=== PATIENT | female | born 1980 | race Caucasian/White ===

== ENCOUNTER → 2017-02-15 | Outpatient (CLI) | payer OTHER ==
--- NOTE | 2017-02-15 14:48 | KCIC ---
PROCEDURE MR of the left forefoot and MR of the right forefoot HISTORY Mass plantar to the 1st metatarsophalangeal joint at the left foot. Mass spreading apart the 3rd and 4th toes at the right foot. TECHNIQUE Routine multiplanar sequences are obtained separately through each foot. COMPARISON None FINDINGS Right foot Soft tissue mass identified between the 3rd and 4th metatarsal heads and proximal phalanges. Measures 3.5 cm anterior to posterior by 1.7 cm wide by 2.0 cm cephalocaudal. Margins are well defined. This consist of hyperintense T1 signal and heterogeneously hyperintense T2 signal with more central component of low T2 signal. This does separate the 3rd and 4th toes. No evidence of underlying bone destruction or bone marrow edema. No acute fracture. No significant joint effusion. Visualized tendons are intact without significant tendon sheath fluid. Lisfranc ligament complex is intact as is tarsometatarsal alignment. Left foot Soft tissue mass plantar and medial to the 1st metatarsophalangeal joint. The mass measures 2.6 cm wide by 1.8 cm height by 3.1 cm anterior to posterior. This consists of mildly hyperintense T1 signal. T2 signal is mostly hypointense with some milder internal areas of T2 signal. Separate area of mild soft tissue signal abnormality plantar to the 5th metatarsal head. This demonstrates signal or signal characteristics with slightly greater degree of T2 signal. This measures 1.8 cm x 0.8 cm by 2.3 cm. No bone destruction or marrow edema. No acute fracture. Visualized tendons appear intact. No significant tendon sheath fluid. Lisfranc ligament complex and alignment are intact. IMPRESSION Multiple soft tissue masses are identified, plantar to the left 1st metatarsophalangeal joint, plantar to the left 5th metatarsal head, and between the right 3rd and 4th metatarsal heads and proximal phalanges. Appearance is nonspecific. Considerations include multiple foci of fibromatosis, fibrous histiocytomas, giant cell tumors of tendon sheath, hemangiomas or less likely schwannomas. Malignant etiology such as multifocal synovial sarcoma is not excludable. Consider tissue biopsy. Electronically signed by: Tank Harper MD (February 15, 2017 14:46:31)
== END | disposition home or self-care (01) ==
LOC: EDSEX 12:08 → KCIC MRI 12:08
PROVIDERS: ATTEND Podiatrist
DX: R68.3 Clubbing of fingers (principal)
CPT/HCPCS: 73718